=== PATIENT | female | born 1990 | race African-American/Black ===

== ENCOUNTER 2023-10-23 17:00 | Emergency (ER) | payer BC, SELFPAY ==
[2023-10-23] VITALS (7 sets, daily range): BP systolic 130–144; BP diastolic 84–99; PULSE 78–96; RESP 14–26; TEMP 37.2; O2SAT 98–99
--- NOTE | ~2023-10-23 | XR_ITS ---
EXAMINATION: XR chest 2V Exam Date/Time: 10/23/2023 17:29 CDT HISTORY: chest pain Comparison: None. RESULT: Lines, tubes, and devices: None. Lungs and pleura: Clear. Cardiomediastinal silhouette: Normal. Other: No acute osseous or upper abdominal finding. IMPRESSION: No acute cardiopulmonary process. Reviewed, dictated and finalized at location K.
--- NOTE | 2023-10-23 17:03 | ECG_ITS ---
Measurements Intervals [place] Rate: 80 P: 26 ID: [id number] QRS: 12 QRSD: 82 T: -2 QT: 352 QTc: 407 Interpretive Statements SINUS RHYTHM DELAYED PRECORDIAL R/S TRANSITION CONSIDER INFERIOR INFARCT, AGE INDETERMINATE BASELINE ARTIFACT- I, II, AVR ABNORMAL ECG NO PREVIOUS ECG AVAILABLE FOR COMPARISON Electronically Signed On 10-23-2023 20:04:32 CDT by Mohsen Li D.O.
--- NOTE | 2023-10-23 17:41 | ED.CHESTPAIN ---
HPI - Chest Pain General Chief Complaint: Chest Pain Stated Complaint: Chest pain Time Seen by Provider: 10/23/23 17:05 History of Present Illness HPI narrative: Patient presenting here with chest pain, states that started yesterday, no recent cough or injury, no recent working out, no nausea or vomiting, she did try taking some Pepcid and with only minimal improvement. No focal numbness or weakness currently. No personal family history of cardiac disease except for in her brother who was also an alcoholic. Related Data Home Medications Medication Instructions Recorded Confirmed No Home Medications 10/23/23 10/23/23 Allergies Allergy/AdvReac Type Severity Reaction Status Date / Time strawberry Allergy Itching Verified 10/23/23 17:11 Review of Systems Review of Systems: CONST: No fever. HEENT: No sore throat C/V: Intermittent chest pain RESP: No cough GI: No abdominal pain : No dysuria. M/S: No joint pain. SKIN: No rash. NEURO: [No headache or focal numbness or weakness] PSYCH: [No depression] Exam Narrative: EXAMINATION OF ORGAN SYSTEMS/BODY AREAS: Constitutional: Vital signs per nursing GENERAL:[No acute distress, non-toxic appearing.] HEAD: Normal with no signs of head trauma. EYES: EOMI, conjunctiva normal ENT: Hearing grossly intact LUNGS: Nonlabored breathing. Clear to auscultation bilaterally HEART: [Regular rate and rhythm], normal DP pulses and radial pulses bilaterally ABD: [Soft], [nontender to palpation] EXT: Normal range of motion SKIN: [No rashes or lesions.] NEURO: [Alert and oriented x 3. No gross focal sensory or strength deficits.] PSYCH: Normal affect Course Vital Signs Vital signs: Vital Signs Temperature 98.9 F 10/23/23 17:06 Pulse Rate 96 10/23/23 17:06 Respiratory Rate 25 H 10/23/23 17:06 Blood Pressure 144/99 H 10/23/23 17:06 Pulse Oximetry 99 10/23/23 17:06 Oxygen Delivery Room Air 10/23/23 17:06 Temperature 98.9 F 10/23/23 17:06 Pulse Rate 83 10/23/23 17:12 Respiratory Rate 25 H 10/23/23 17:06 Blood Pressure 144/99 H 10/23/23 17:06 Pulse Oximetry 99 10/23/23 17:06 Oxygen Delivery Room Air 10/23/23 17:06 MDM - Chest Pain MDM Narrative Medical decision making narrative: ED COURSE AND MEDICAL DECISION MAKINF presenting with chest pain. EKG done in triage negative for acute ischemic changes. Cardiac workup is initiated. EKG: Performed in triage and interpreted by me. Normal sinus rhythm. Rate [95]. Normal axis. VA normal. QRS duration normal. QTc normal. No pathologic Q waves. No ST segment elevation or depression to suggest acute ischemia. No RV strain pattern. No acute ischemic changes on EKG and no risk factors making ACS unlikely. Negative PERC and no DVT symptoms making PE unlikely. Presentation not consistent with dissection or aneurysm without radiation of pain or pulse deficits. CXR negative for mediastinal widening. No abdominal pain or signs of sepsis that would be concerning for esophageal perforation or mediastinitis. No cardiomegaly or JVD to suggest pericardial effusion/tamponade. On repeat evaluation just prior to discharge, the patient is no acute distress. I had a long discussion with the patient and with shared decision making, she is comfortable with outpatient management. She was given clear return instructions by myself in person as well as on discharge paperwork. Procedures: Pulse oximetry interpretation - not hypoxic. EKG interpretation. Review of medical records. Discharge Plan Discharge Clinical Impression: Atypical chest pain Patient Disposition: Home, Self-Care Condition: Stable Instructions: Antibiotic Form, Chest Pain (ED) Additional Instructions: Please follow up with your doctor; you can always return for any further issues. Prescriptions: No Action No Home Medications Follow-up/Referrals: Hunter Johnston MD [Primary Care Provider] - 2 Days
[2023-10-23] MEDS: KETOROLAC 30 MG/ML VIAL (*BKC) IM (17:54)
== END 2023-10-23 18:12 | disposition home or self-care (01) ==
LOC: ANHED 18:01
PROVIDERS: Emergency Provider Emergency Medicine; PCP Emergency Medicine
DX: R07.89 Other chest pain (principal); R94.31 Abnormal electrocardiogram [ECG] [EKG]
CPT/HCPCS: 71046; 93005; 96372; 99284; J1885